=== PATIENT | female | born 1985 | race Caucasian/White ===

== ENCOUNTER 2017-09-27 15:23 | Emergency (ER) | payer OTHER ==
[~2017-09-27] VITALS: Ht 172.7 cm; Wt 77.3 kg
[~2017-09-27 15:23] MED LIST: ADDERALL5 MG PO; EFFEXOR PO; Motrin PO; Percocet 5/325,Endoc PO; YAZ1 TABLET PO
[2017-09-27] MEDS ORDERED: FLEXERIL10 MG PO (16:20)
[2017-09-27] MEDS ORDERED: MOTRIN800 MG PO (16:20)
[2017-09-27 17:23] VITALS: BP 128/72
== END 2017-09-27 17:24 | disposition home or self-care (01) ==
LOC: EME 15:23
DX: S16.1XXA Strain of muscle, fascia and tendon at neck level, initial encounter (principal); V43.52XA Car driver injured in collision with other type car in traffic accident, initial encounter; Y92.410 Unspecified street and highway as the place of occurrence of the external cause
CPT/HCPCS: 99281; 99283